=== PATIENT | female | born 1965 | race Caucasian/White ===

== ENCOUNTER 2021-01-21 17:51 | Emergency (ER) | payer MEDICAID, SELFPAY ==
--- NOTE | 2021-01-21 | XR_ITS ---
WS: [id number] Right elbow, 3 views, 01/21/2021 Clinical Data: ELBOW PAIN Comparison: None. Findings: No fractures or dislocations are seen. The radial head is normal. The soft tissues are unremarkable. XR/XR elbow RT min 3V* [id number] Impression: Negative right elbow.
--- NOTE | 2021-01-21 17:52 | XRR_ITS ---
PROCEDURE INFORMATION: Exam: XR Right Elbow Exam date and time: 01/21/2021 5:52 PM Age: 55 years old Clinical indication: Pain; Elbow; Right; Additional info: Fall TECHNIQUE: Imaging protocol: XR Right elbow. Views: 3 or more views. COMPARISON: No relevant prior studies available. FINDINGS: Bones/joints: No acute fracture. No dislocation. Normal bone mineralization. No joint effusion. Joint spaces are maintained. Soft tissues: No soft tissue swelling. No radiopaque foreign body.
[2021-01-21 18:23] VITALS: BP 132/81; PULSE 75; RESP 18; TEMP 36.6; O2SAT 98; BMI 21.4
--- NOTE | 2021-01-21 19:34 | ED_ITS ---
HPI - Extremity Problem General: Chief complaint: Extremity Injury, Upper Stated complaint: L. Elbow Pain/Fall on 01/17 Time Seen by Provider: 01/21/21 19:34 History of Present Illness: HPI Narrative: 55-year-old female comes in today with complaints of right dorsal elbow pain. Patient reports that she fell on Tuesday striking her elbow. Since then patient has had progressively worsening pain to the elbow. Patient is able to manipulate and move the elbow without difficulty. Patient is able to push herself off the chair. Patient is alert and oriented. No signs of severe distress is noted. Review of Systems General: Reports: 10 or more systems reviewed and unremarkable except in HPI and below Musc: Reports: other (Right elbow pain.) Physical Exam Const: COMMON NORMALS: no acute distress and patient oriented x3 GENERAL APPEARANCE: cooperative HENMT: COMMON NORMALS: normocephalic and Normal external nose present HEAD & SCALP: normal to inspection and normocephalic NOSE: Normal external nose present Eye: GENERAL EYE: appearance normal, both eyes and all related structures Neck/C-Spine: COMMON NORMALS: full ROM Chest: COMMONS NORMALS: normal inspection of the chest Resp: COMMON NORMALS: normal respiratory effort EFFORT & INSPECTION: Yes able to speak in complete sentences Cardio: COMMON NORMALS: regular rate and regular rhythm RATE: regular rate RHYTHM: regular rhythm GI: COMMON NORMALS: non-tender Back/Pelvis: COMMON NORMALS: thoracic and lumbar spine normal to inspection Extremity: NARRATIVE EXTREMITY EXAM: Tenderness is noted to the posterior right elbow without signs of redness or inflammation. Patient does have a small contusion with ecchymosis noted to the ulnar forearm. 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 Neuro: COMMON NORMALS: patient oriented x3 and moves all extremities Psych: COMMON NORMALS: mental status grossly normal and cooperative Skin: COMMON NORMALS: no rashes or lesions noted GENERAL SKIN EXAM: no rashes or lesions noted Course Vital Signs: Vital signs: Vital Signs Temperature 97.7 F 01/21/21 20:17 Pulse Rate 62 01/21/21 20:17 Respiratory Rate 18 01/21/21 20:17 Blood Pressure 160/90 01/21/21 20:17 Pulse Oximetry 100 01/21/21 20:17 MDM - Extremity (Nontraumatic) MDM Narrative: Medical decision making narrative: Patient comes in for injury to the right elbow. Injury occurred on Tuesday. On exam we note no noticeable injury. Minimal swelling is noted, no redness or induration is noted, tenderness is noted to the posterior olecranon area of the right elbow. Normal range of motion is noted. Patient has a small 1 cm circular bruise to the ulnar side of the forearm. Differential diagnosis includes fracture, sprain, contusion. X-ray noted no fracture. Patient was recommended to use acetaminophen or ibuprofen for pain we did give her some tramadol for breakt hrough pain as patient was reporting some significant pain to the area. Patient was recommended to use ice and heat otherwise for the pain control. Patient should follow-up with primary care for further instruction. Patient reported understanding agreed to plan. Discharge Plan Discharge Patient Disposition: Home Clinical Impression: Contusion of right elbow, initial encounter Condition: Stable Prescriptions: New tramadol 50 mg tablet 50 mg PO Q8H PRN (Reason: pain) Qty: 7 RF: 0 Discharge Orders: Discharge ED (Routine); Ordered 01/21/21 Ordered By: Akil Diane Discharge Diet: Usual diet Discharge Activity: Increase activity as tolerated Patient Instructions: Elbow Sprain (ED), Opioid Safety Activity Restrictions/Additional Instructions: Use sling for comfort. Increase activity as tolerated. Use ice or heat to the area for further comfort relief. Take tramadol as needed for pain. We will contact you regarding the final radiology report if any abnormality was noted. We have provided a review of the x-ray and at this time there is no sign of any fracture. A board-certified radiologist will review the x-ray in anything different is seen we will contact you with further recommendations. Follow-up with primary care as needed. Return to the ER for new concerns. Coding Level of Care Code ED [employer] Equipment Operator for Yvette Chaudhry
[2021-01-21] MEDS: TRAMadol 50 mg Tablet PO (20:02)
[2021-01-21 20:17] VITALS: BP 160/90; PULSE 62; RESP 18; TEMP 36.5; O2SAT 100
== END 2021-01-21 20:18 | disposition home or self-care (01) ==
PROVIDERS: Emergency Provider Nurse Practitioner Family
DX: S50.01XA Contusion of right elbow, initial encounter (principal); W19.XXXA Unspecified fall, initial encounter
CPT/HCPCS: 73080; 99283